=== PATIENT | male | born 1935 | race Caucasian/White ===

== ENCOUNTER 2017-02-23 10:49 | Emergency (ER) | payer MEDICARE, BC ==
[2017-02-23 11:05] VITALS: BP 150/72
--- NOTE | 2017-02-23 11:46 | EDM.PDOC ---
ED HPI GI/ABDOMINAL - General Chief Complaint: Genitourinary Problem Stated Complaint: UTI Time Seen by Provider: 02/23/17 11:40 Source: Reports: Patient, Family History Limitations: Reports: No limitations - History of Present Illness INITIAL COMMENTS - FREE TEXT/NARRATIVE: pt arrived with a history of recurrent utis. He has Cipro when he is traveling and he started burning and having urinary frequency. He started the cipro and has been on it for the past 5 days. he now has a rash in the lower abdoman area. This is a flat rounded rash which does not ever look like a welt. This does not itch. He does not have a rash anywhere else. Timing/Duration: Reports: Day(s):, Getting worse Associated Symptoms: Reports: denies other symptoms - Related Data Allergies/ADRs: Allergies Allergy/AdvReac Type Severity Reaction Status Date / Time carbenicillin [Carbenicillin] Allergy Headache Verified 02/23/17 11:05 doxycycline Allergy Other Verified 02/23/17 11:05 nifedipine [From Adalat] Allergy Other Verified 02/23/17 11:05 sulfamethoxazole Allergy Hives Verified 02/23/17 11:05 [From Bactrim] trimethoprim [From Bactrim] Allergy Hives Verified 02/23/17 11:05 Home Meds: Home Meds Aspirin [Adult Low Dose Aspirin EC] 81 mg PO DAILY 07/14/14 [History] Multivitamin with Minerals [Multiple Vitamin] 1 tab PO DAILY 07/14/14 [History] metFORMIN [Glucophage] 500 mg PO TIDM 07/14/14 [History] Ciprofloxacin HCl [Cipro] 500 mg PO DAILY 08/05/16 [History] Lisinopril 5 mg PO BID 08/05/16 [History] Cranberry Extract [Cranberry] 500 mg PO DAILY 02/23/17 [History] Past Medical History Cardiovascular History: Reports: Afib, Arrhythmia, Blood clots/VTE/DVT, High cholesterol, Hypertension, Other (see below) Other Cardiovascular History: hyperlipidemia Genitourinary History: Reports: Renal calculus, UTI, recurrent Endocrine/Metabolic History: Reports: Diabetes, type II Oncologic (Cancer) History: Reports: Prostate - Infectious Disease History Infectious Disease History: Reports: Chicken pox, Measles, Mumps - Past Surgical History GI Surgical History: Reports: Colonoscopy, Hernia repair/other Male Surgical History: Reports: Lithotripsy (ESWL), Other (see below) Other Male Surgeries/Procedures: prostate surgery Musculoskeletal Surgical History: Reports: Knee replacement, Shoulder surgery Social & Family History - Tobacco Use Smoking Status *Q: Never Smoker Second Hand Smoke Exposure: No - Caffeine Use Caffeine Use: Reports: None - Alcohol Use Days Per Week of Alcohol Use: 0 - Recreational Drug Use Recreational Drug Use: No - Living Situation & Occupation Living situation: Reports: Occupation: retired (lives with , [place] of [place], [place]. has 4 grown children. [facility] in [facility] ED ROS GENERAL - Review of Systems Review Of Systems: See Below Constitutional: Reports: no symptoms HEENT: Reports: No symptoms Respiratory: Reports: No Symptoms Cardiovascular: Reports: No symptoms Endocrine: Reports: no symptoms GI/Abdominal: Reports: No symptoms : Reports: dysuria, frequency Musculoskeletal: Reports: no symptoms Skin: Reports: no symptoms Neurological: Reports: No Symptoms ED EXAM, GI/ABD - Physical Exam Exam: See Below Text/Narrative:: pt arrived with pain on voiding. He has a rash from the cipro he is taking. Exam Limited By: No limitations General Appearance: alert Nose: normal inspection Throat/Mouth: Normal inspection Head: atraumatic Neck: normal inspection GI/Abdominal: other ( no tenderness present. ) (Male) Exam: Other (pt has a rash on the abdoman which is macular but not urticarial. This does not itch. ) Rectal (Males) Exam: Deferred Back Exam: normal inspection Extremities: normal inspection Neurological: alert, oriented, normal cognition Course - Vital Signs Last Recorded V/S: Last Vital Signs Temp 36.4 C 02/23/17 11:16 Pulse 81 02/23/17 11:16 Resp 14 02/23/17 11:16 BP 150/72 H 02/23/17 11:16 Pulse Ox 99 02/23/17 11:16 - Orders/Labs/Meds Orders: Active Orders 24 hr Category Date Time Status CULTURE URINE [RM] Stat Lab 02/23/17 11:39 Uncollected Labs: Laboratory Tests 02/23/17 02/23/17 02/23/17 Range/Units 11:28 11:28 11:28 WBC 10.4 (4.5-11.0) K/uL RBC 5.40 (4.30-5.90) M/uL Hgb 14.7 (12.0-15.0) g/dL Hct 45.6 (40.0-54.0) % MCV 84 (80-98) fL MCH 27 (27-31) pg MCHC 32 (32-36) % Plt Count 322 (150-400) K/uL Neut % (Auto) 74 H (36-66) % Lymph % (Auto) 15 L (24-44) % [place] % (Auto) 11 H (2-6) % Eos % (Auto) 1 L (2-4) % Baso % (Auto) 0 (0-1) % Sodium 136 L (140-148) mmol/L Potassium 5.1 (3.6-5.2) mmol/L Chloride 100 (100-108) mmol/L Carbon Dioxide 30 (21-32) mmol/L Anion Gap 11.1 (5.0-14.0) mmol/L BUN 34 H (7-18) mg/dL Creatinine 1.6 H (0.8-1.3) mg/dL Est Cr Clr Drug Dosing 36.22 mL/min Estimated GFR (MDRD) 42 L (>60) Glucose 225 H (74-106) mg/dL Calcium 9.4 (8.5-10.1) mg/dL Urine Color Yellow Urine Appearance Turbid Urine pH 5.0 (4.5-8.0) Ur Specific [place] 1.015 (1.008-1.030) Urine Protein Trace (NEGATIVE) mg/dL Urine Glucose (UA) 250 H (NEGATIVE) mg/dL Urine Ketones Negative (NEGATIVE) mg/dL Urine Occult Blood Moderate (NEGATIVE) Urine Nitrite Negative (NEGAITVE) Urine Bilirubin Negative (NEGATIVE) Urine Urobilinogen Normal (NORMAL) mg/dL Ur Leukocyte Esterase Large (NEGATIVE) Urine RBC 5-10 H (0-5) Urine WBC Packed H (0-5) Ur Epithelial Cells Not seen Amorphous Sediment Not seen Urine Bacteria Moderate Urine Mucus Not seen Meds: Medications Discontinued Medications Generic Name Dose Route Start Last Admin Trade Name Freq PRN Reason Stop Dose Admin Ceftriaxone Sodium 1 gm/ 0 gm 02/23/17 11:52 Lidocaine HCl 2.1 ml IM 02/23/17 11:53 ONETIME ONE - Re-Assessments/Exams Free Text/Narrative Re-Assessment/Exam: 02/23/17 11:59 urine is packed with wbcs and bacteria. A urine culture will be set up. Pt was given rocephen 1 gm im to start coverage and then he bibi be placed on nitrofurantoin. 100mg qid. Departure - Departure Time of Disposition: 12:01 Disposition: Home, Self-Care 01 Condition: fair Clinical Impression: UTI (urinary tract infection), Medication reaction Forms: ED Department Discharge Care Plan Goals: push fluids, nitrofurtanoin 100mg qid. will notify of the culture. suggest a urology consult because of the recurrent infection. - My Orders Last 24 Hours: My Active Orders 02/23/17 11:39 CULTURE URINE [RM] Stat - Assessment/Plan Last 24 Hours: My Active Orders 02/23/17 11:39 CULTURE URINE [RM] Stat
[2017-02-23] MEDS ORDERED: cefTRIAXone 1 GM, Lidocaine 1% 2.1 ML IM ONE ×2 (11:52)
== END 2017-02-23 12:50 | disposition home or self-care (01) ==
LOC: JP.ED 10:49
DX: N39.0 Urinary tract infection, site not specified (principal); T36.8X5A Adverse effect of other systemic antibiotics, initial encounter; I48.91 Unspecified atrial fibrillation; E78.00 Pure hypercholesterolemia, unspecified; I10 Essential (primary) hypertension; E11.9 Type 2 diabetes mellitus without complications; Z88.1 Allergy status to other antibiotic agents; Z88.2 Allergy status to sulfonamides; Z79.82 Long term (current) use of aspirin; Z79.84 Long term (current) use of oral hypoglycemic drugs; Z79.899 Other long term (current) drug therapy
CPT/HCPCS: 36415; 80048; 81001; 85025; 87086; 87088; 87186; 96372; 99284; J0696; 99283

== ENCOUNTER 2019-05-03 13:48 | Emergency (ER) | payer MEDICARE, BC ==
[2019-05-03 14:27] VITALS: BP 150/77; PULSE 87
[2019-05-03] MEDS ORDERED: Diazepam 5 MG Tab PO ONE (15:05)
--- NOTE | 2019-05-03 15:11 | EDM.PDOC ---
ED HPI GENERAL MEDICAL PROBLEM - General Chief Complaint: Neck Problem Stated Complaint: SEVERE NECK PAIN Time Seen by Provider: 05/03/19 14:17 Source of Information: Reports: Patient History Limitations: Reports: No Limitations - History of Present Illness INITIAL COMMENTS - FREE TEXT/NARRATIVE: states he woke up Saturday morning and was unable to move his neck; severe pain ; took ibuprofen without relief. He denies injury; unable to move from chin to chest or side to side. Onset: Gradual Duration: Day(s): (2) Location: Reports: Neck Quality: Reports: Other (stiff and sharp with any movement) Severity: Moderate Improves with: Reports: None Worsens with: Reports: None - Related Data Allergies Allergy/AdvReac Type Severity Reaction Status Date / Time carbenicillin [Carbenicillin] Allergy Headache Verified 05/03/19 14:30 doxycycline Allergy Other Verified 05/03/19 14:30 nifedipine [From Adalat] Allergy Other Verified 05/03/19 14:30 sulfamethoxazole Allergy Hives Verified 05/03/19 14:30 [From Bactrim] trimethoprim [From Bactrim] Allergy Hives Verified 05/03/19 14:30 Home Meds: Home Meds Aspirin [Adult Low Dose Aspirin EC] 81 mg PO DAILY 07/14/14 [History] Multivitamin with Minerals [Multiple Vitamin] 1 tab PO DAILY 07/14/14 [History] metFORMIN [Glucophage] 500 mg PO TIDM 07/14/14 [History] Cranberry Fruit Extract [Cranberry] 500 mg PO DAILY 02/23/17 [History] Lidocaine 5% [Lidoderm 5%] 1 patch TOP DAILY #5 patch 05/03/19 [Rx] Losartan [Cozaar] 05/03/19 [History] Past Medical History Cardiovascular History: Reports: Afib, Arrhythmia, Blood Clots/VTE/DVT, High Cholesterol, Hypertension, Other (See Below) Other Cardiovascular History: hyperlipidemia Genitourinary History: Reports: Renal Calculus, UTI, Recurrent Endocrine/Metabolic History: Reports: Diabetes, Type II Oncologic (Cancer) History: Reports: Prostate - Infectious Disease History Infectious Disease History: Reports: Chicken Pox, Extended Spectrum Beta- Lactamase (ESBL), Measles, Mumps - Past Surgical History GI Surgical History: Reports: Colonoscopy, Hernia Repair/Other Male Surgical History: Reports: Lithotripsy (ESWL), Other (See Below) Musculoskeletal Surgical History: Reports: Knee Replacement, Shoulder Surgery Social & Family History - Tobacco Use Smoking Status *Q: Never Smoker - Caffeine Use Caffeine Use: Reports: None - Living Situation & Occupation Living situation: Reports: Occupation: Retired ED ROS GENERAL - Review of Systems Review Of Systems: See Below Constitutional: Reports: No Symptoms Respiratory: Reports: No Symptoms Cardiovascular: Reports: No Symptoms Musculoskeletal: Reports: Neck Pain Skin: Reports: No Symptoms Neurological: Reports: No Symptoms Psychiatric: Reports: No Symptoms ED EXAM, GENERAL - Physical Exam Exam: See Below Exam Limited By: No Limitations General Appearance: Alert, WD/WN, No Apparent Distress Nose: Normal Inspection Throat/Mouth: Normal Inspection Head: Atraumatic, Normocephalic Neck: Normal Inspection, Supple, Limited Range of Motion, Tender Lateral, Tender Midline Respiratory/Chest: Lungs Clear, Normal Breath Sounds Cardiovascular: Regular Rate, Rhythm Back Exam: Normal Inspection, Full Range of Motion Extremities: Normal Inspection, Normal Range of Motion Neurological: Alert, Oriented, CN II-XII Intact, Normal Cognition, Normal Gait Psychiatric: Normal Affect, Normal Mood Skin Exam: Warm, Dry, Intact Course - Vital Signs Last Recorded V/S: Last Vital Signs Temp 98.5 F 05/03/19 14:37 Pulse 87 05/03/19 14:37 Resp 16 05/03/19 14:37 BP 150/77 H 05/03/19 14:37 Pulse Ox 97 05/03/19 14:37 - Orders/Labs/Meds Meds: Medications Discontinued Medications Generic Name Dose Route Start Last Admin Trade Name Jonna PRN Reason Stop Dose Admin Diazepam 5 mg 05/03/19 15:05 05/03/19 15:19 Valium. PO 05/03/19 15:06 5 mg ONETIME ONE Administration Lidocaine 700 mg 05/03/19 16:18 05/03/19 16:28 Lidoderm 5% TOP 05/03/19 16:19 700 mg ONETIME ONE Administration Morphine Sulfate 4 mg 05/03/19 16:07 05/03/19 16:16 Morphine IM 05/03/19 16:08 4 mg ONETIME ONE Administration - Re-Assessments/Exams Free Text/Narrative Re-Assessment/Exam: 05/03/19 16:07 Recheck on patient after valium given PO; he states he has had no pain relief what so ever; will give him some morphine. Free Text/Narrative Re-Assessment/Exam: 05/03/19 16:38 reviewed xray with patient and Morphine IM given; not much relief Departure - Departure Time of Disposition: 16:39 Disposition: Home, Self-Care 01 Condition: Good Clinical Impression: Neck pain - Discharge Information *PRESCRIPTION DRUG MONITORING PROGRAM REVIEWED*: Not Applicable *COPY OF PRESCRIPTION DRUG MONITORING REPORT IN PATIENT JERRY: Not Applicable Prescriptions: Lidocaine 5% [Lidoderm 5%] 1 patch TOP DAILY #5 patch Instructions: Pain Without a Known Cause Referrals: Grey Garces MD [Primary Care Provider] - Forms: ED Department Discharge Additional Instructions: Continue with ice to affected area as needed Muscle relaxer as directed May use tylenol and ibuprofen along with muscle relaxer Lidocaine patch may be helpful; use as directed - Problem List & Annotations (1) Neck pain SNOMED Code(s): 51443907 Code(s): M54.2 - CERVICALGIA Status: Acute Priority: Medium Current Visit: Yes - Problem List Review Problem List Initiated/Reviewed/Updated: Yes
[2019-05-03] MEDS ORDERED: Morphine 4 MG/ML Syringe IM ONE (16:07)
[2019-05-03] MEDS ORDERED: Lidocaine 5% 700 MG Patch TOP ONE (16:18)
--- NOTE | 2019-05-03 16:22 | CRLCR ---
TECHNIQUE: Three views of the cervical spine. INDICATION: Pain, loss of range of motion. FINDINGS: No acute cervical spine fracture, dislocation, or prevertebral soft tissue swelling. Reversal of the normal cervical lordosis which may be due to positioning. 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 Mid cervical facet arthrosis. Dictated by Silvestre Jade MD @ 05/03/2019 4:20:48 PM Dictated by: Silvestre Jade MD @ 05/03/2019 16:20:59 (Electronically Signed)
== END 2019-05-03 16:40 | disposition home or self-care (01) ==
LOC: JP.ED 13:48
DX: M54.2 Cervicalgia (principal); I10 Essential (primary) hypertension; I48.91 Unspecified atrial fibrillation; E78.00 Pure hypercholesterolemia, unspecified; E78.5 Hyperlipidemia, unspecified; E11.9 Type 2 diabetes mellitus without complications; Z79.84 Long term (current) use of oral hypoglycemic drugs; Z88.1 Allergy status to other antibiotic agents; Z88.8 Allergy status to other drugs, medicaments and biological substances; Z79.82 Long term (current) use of aspirin; Z79.899 Other long term (current) drug therapy; Z87.442 Personal history of urinary calculi; Z85.46 Personal history of malignant neoplasm of prostate
CPT/HCPCS: 72040; 96372; 99283; A9270; J2270

== ENCOUNTER 2021-05-01 11:05 | Emergency (ER) | payer MEDICARE, BC ==
[2021-05-01 11:30] VITALS: BP 135/76; PULSE 107
--- NOTE | 2021-05-01 12:19 | EDM.PDOC ---
ED HPI GENERAL MEDICAL PROBLEM - General Chief Complaint: Genitourinary Problem Stated Complaint: POSSIBLE UTI/DIZZY Time Seen by Provider: 05/01/21 12:00 Source of Information: Reports: Patient, Family History Limitations: Reports: No Limitations - History of Present Illness INITIAL COMMENTS - FREE TEXT/NARRATIVE: 85-year-old male with a history of recurring UTIs, has had a prosthetic procedure in the past, presents with 1 day of dizziness, mild generalized malaise, and fevers. No specific urinary symptoms. Denies cough or shortness of breath, tick exposure, joint pains or rash. He feels a little better today, his fever is gone but still feels off and wants to be checked for UTI. Onset: Gradual Duration: Hour(s): (12 hours) Associated Symptoms: Reports: Fever/Chills, Malaise. Denies: Headaches, Nausea/Vomiting, Shortness of Breath - Related Data Allergies Allergy/AdvReac Type Severity Reaction Status Date / Time carbenicillin [Carbenicillin] Allergy Headache Verified 05/01/21 11:36 doxycycline Allergy Other Verified 05/01/21 11:36 nifedipine [From Adalat] Allergy Other Verified 05/01/21 11:36 sulfamethoxazole Allergy Hives Verified 05/01/21 11:36 [From Bactrim] trimethoprim [From Bactrim] Allergy Hives Verified 05/01/21 11:36 Home Meds: Home Meds Aspirin [Adult Low Dose Aspirin EC] 81 mg PO DAILY 07/14/14 [History] Multivitamin with Minerals [Multiple Vitamin] 1 tab PO DAILY 07/14/14 [History] metFORMIN [Glucophage] 500 mg PO TIDM 07/14/14 [History] Triamterene/Hydrochlorothiazid [Triamterene-HCTZ 37.5-25 MG] 1 each PO DAILY 05/01/21 [History] Past Medical History Cardiovascular History: Reports: Afib, Arrhythmia, Blood Clots/VTE/DVT, High Cholesterol, Hypertension, Other (See Below) Other Cardiovascular History: hyperlipidemia Genitourinary History: Reports: Renal Calculus, UTI, Recurrent Endocrine/Metabolic History: Reports: Diabetes, Type II Oncologic (Cancer) History: Reports: Prostate - Infectious Disease History Infectious Disease History: Reports: Chicken Pox, Extended Spectrum Beta- Lactamase (ESBL), Measles, Mumps - Past Surgical History GI Surgical History: Reports: Colonoscopy, Hernia Repair/Other Male Surgical History: Reports: Lithotripsy (ESWL), Other (See Below) Other Male Surgeries/Procedures: prostate surgery Musculoskeletal Surgical History: Reports: Knee Replacement, Shoulder Surgery Social & Family History - Tobacco Use Tobacco Use Status *Q: Never Tobacco User Second Hand Smoke Exposure: No - Caffeine Use Caffeine Use: Reports: None - Recreational Drug Use Recreational Drug Use: No - Living Situation & Occupation Living situation: Reports: Occupation: Retired ED ROS GENERAL - Review of Systems Review Of Systems: See Below Constitutional: Reports: Fever, Chills, Malaise HEENT: Reports: No Symptoms Respiratory: Reports: Shortness of Breath (Complains of intermittent shortness of breath but nothing currently) Cardiovascular: Reports: No Symptoms GI/Abdominal: Denies: Abdominal Pain, Nausea, Vomiting Skin: Reports: No Symptoms ED EXAM, GENERAL - Physical Exam Exam: See Below Exam Limited By: No Limitations General Appearance: Alert, No Apparent Distress Eye Exam: Bilateral Eye: Normal Inspection Head: Atraumatic Respiratory/Chest: Lungs Clear Cardiovascular: Regular Rate, Rhythm, Tachycardia (Mild tachycardia), Extra Beats GI/Abdominal: Normal Bowel Sounds, Soft, Non-Tender Back Exam: No: CVA Tenderness (R), CVA Tenderness (L) Extremities: Normal Inspection. No: Pedal Edema Neurological: Alert, Oriented Psychiatric: Normal Affect, Normal Mood Skin Exam: Warm, Dry Course - Vital Signs Last Recorded V/S: Last Vital Signs Temp 98.3 F 05/01/21 11:41 Pulse 107 H 05/01/21 11:41 Resp 16 05/01/21 11:41 BP 135/76 05/01/21 11:41 Pulse Ox 96 05/01/21 11:41 - Orders/Labs/Meds Orders: Active Orders 24 hr Category Date Time Status CULTURE URINE [RM] Stat Lab 05/01/21 11:35 Received Labs: Laboratory Tests 05/01/21 Range/Units 11:50 Urine Color Yellow (YELLOW) Urine Appearance Cloudy A (CLEAR) Urine pH 5.5 (5.0-8.0) Ur Specific [place] 1.020 (1.008-1.030) Urine Protein 100 H (NEGATIVE) mg/dL Urine Glucose (UA) 500 H (NEGATIVE) mg/dL Urine Ketones Negative (NEGATIVE) mg/dL Urine Occult Blood Moderate H (NEGATIVE) Urine Nitrite Negative (NEGATIVE) Urine Bilirubin Negative (NEGATIVE) Urine Urobilinogen 0.2 (0.2-1.0) EU/dL Ur Leukocyte Esterase Small H (NEGATIVE) Urine RBC Packed H (0-5) Urine WBC 20-30 H (0-5) Ur Epithelial Cells Few Amorphous Sediment Few Urine Bacteria Moderate Urine Mucus Few - Re-Assessments/Exams Free Text/Narrative Re-Assessment/Exam: 05/01/21 12:19 UA was obtained which was positive for infection including RBCs, WBCs and bacteria. A culture will be initiated, his microbiology was reviewed from past UTIs and Macrodantin appears to be a good choice considering his allergies and his past sensitivities. Patient will be placed on 7 days of Macrobid. Departure - Departure Time of Disposition: 12:43 Disposition: Home, Self-Care 01 Clinical Impression: UTI, Urinary tract infectious disease - Discharge Information Instructions: Urinary Tract Infection, Adult, [id number] Referrals: Grey Garces MD [Primary Care Provider] - Forms: ED Department Discharge Care Plan Goals: Take antibiotic twice daily, continue with cephalexin if you want to, and should recheck on as scheduled. Stay hydrated, and return sooner if worsening despite treatment. Sepsis Event Note (ED) - Evaluation Sepsis Screening Result: Possible Sepsis Risk - Focused Exam Vital Signs: Vital Signs Temp Pulse Resp BP Pulse Ox 05/01/21 11:41 98.3 F 107 H 16 135/76 96 05/01/21 11:28 98.3 F 107 H 16 135/76 96 - My Orders Last 24 Hours: My Active Orders 05/01/21 11:35 CULTURE URINE [RM] Stat - Assessment/Plan Last 24 Hours: My Active Orders 05/01/21 11:35 CULTURE URINE [RM] Stat
== END 2021-05-01 12:43 | disposition home or self-care (01) ==
LOC: JP.ED 11:05
DX: N39.0 Urinary tract infection, site not specified (principal); I48.91 Unspecified atrial fibrillation; I10 Essential (primary) hypertension; E11.9 Type 2 diabetes mellitus without complications; R00.0 Tachycardia, unspecified; Z88.8 Allergy status to other drugs, medicaments and biological substances; Z88.1 Allergy status to other antibiotic agents; Z88.2 Allergy status to sulfonamides; Z79.82 Long term (current) use of aspirin; Z79.84 Long term (current) use of oral hypoglycemic drugs; Z79.899 Other long term (current) drug therapy
CPT/HCPCS: 81001; 87086; 87088; 87186; 99284

== ENCOUNTER 2022-03-18 18:41 | Emergency (ER) | payer MEDICARE, BC ==
[2022-03-18 19:18] VITALS: BP 115/54; PULSE 95
[2022-03-18] MEDS ORDERED: Triamcinolone Acetonide 40 MG/ML 1 ML SDV INJECT ONE (19:50)
[2022-03-18] MEDS ORDERED: Cephalexin 250 MG Cap PO ONE (20:01)
== END 2022-03-18 20:23 | disposition home or self-care (01) ==
LOC: JP.ED 18:41
DX: L03.116 Cellulitis of left lower limb (principal); M10.9 Gout, unspecified; E11.9 Type 2 diabetes mellitus without complications; Z79.899 Other long term (current) drug therapy; Z79.82 Long term (current) use of aspirin; Z79.84 Long term (current) use of oral hypoglycemic drugs; Z88.0 Allergy status to penicillin; Z88.2 Allergy status to sulfonamides; Z88.1 Allergy status to other antibiotic agents
CPT/HCPCS: 36415; 84550; 85025; 96372; 99282; 99283; J3301